=== PATIENT | male | born 1950 | race Hispanic/Latino ===

== ENCOUNTER → 2018-02-26 | Outpatient (CLI) | payer OTHER ==
[~2018-02-26] MED LIST: ASPI-1197 PO; BACL10TA PO; CARV3.1262 PO; CLOP75TA14 PO; FLUT16H NS; FURO40TA7 PO; LISI-617 PO; LISI10TA7 PO; NAPR375T6 PO; RIVA20TA PO; VITA150T PO
== END | disposition home or self-care (01) ==
LOC: RAH 11:21
PROVIDERS: ATTEND Internal Medicine
DX: M54.5 Low back pain (principal); M54.6 Pain in thoracic spine
CPT/HCPCS: 72040; 72072

== ENCOUNTER 2018-03-08 10:23 | Observation (INO) | payer OTHER ==
[~2018-03-08] VITALS: Ht 167.6 cm; Wt 72.9 kg
[2018-03-08] MEDS ORDERED: SODIUM CHLORIDE 0.9% 500ML 500 ML IV ONE ×2 (10:46→11:10)
[2018-03-08 10:52] LABS: BASOPHILS % (AUTO) 0.7 % (0.0-5.0); EOSINOPHILS % (AUTO) 1.3 % (0.0-8.0); HEMATOCRIT 34.6 % (42-54); LYMPHOCYTES % (AUTO) 10.9 % (21.0-51.0); MEAN CORPUSCULAR HEMOGLOBIN 35.4 pg (27.0-33.0); MEAN CORPUSCULAR HGB CONC 35.5 g/dL (32.0-36.0); MEAN CORPUSCULAR VOLUME 99.7 fL (79-99); MONOCYTES % (AUTO) 6.9 % (3.0-13.0); NEUTROPHILS % (AUTO) 80.2 % (40.0-77.0); NUCLEATED RED BLOOD CELLS 0.1 % (0.0-0.19); PLATELET COUNT (AUTO) 347 K/uL (130-400); RED BLOOD CELL COUNT(AUTO) 3.47 MIL/uL (4.50-6.20); RED CELL DISTRIBUTION WIDTH 12.9 % (11.0-15.5); WHITE BLOOD COUNT (AUTO) 7.7 K/uL (4.8-10.8)
[2018-03-08] MEDS ORDERED: METOPROLOL TARTRATE 1 MG/ML 5ML VIAL IV ONE ×2 (11:00→11:10)
[2018-03-08] MEDS ORDERED: ASPIRIN 325 MG TABLET ONE (11:07)
[2018-03-08 11:10] LABS: CREATININE 1.1 mg/dL (0.5-1.5)
[2018-03-08 11:23] LABS: ALBUMIN 2.8 g/dL (3.5-5.0); BILIRUBIN,TOTAL 0.7 mg/dL (0.2-1.0); CREATINE KINASE MB 1.4 ng/mL (0.5-3.6); TOTAL PROTEIN, SERUM 7.6 g/dL (6.0-8.3)
[2018-03-08 11:28] LABS: INR 0.97 (0.85-1.15); PARTIAL THROMBOPLASTIN TIME 27.9 SEC (26.3-35.5); PROTHROMBIN TIME 10.2 SEC (9.6-11.6)
[2018-03-08 11:47] LABS: B-TYPE NATRIURETIC PEPTIDE 817 pg/mL (0-100)
[2018-03-08] MEDS ORDERED: FUROSEMIDE 10 MG/ML 4ML VIAL ONE (12:01)
[2018-03-08] MEDS ORDERED: IOPAMIDOL-370 100 ML VIAL IV ONE (13:10)
[2018-03-08 15:20] VITALS: BP 101/71
[2018-03-08] MEDS ORDERED: FLUT16H NS (15:47)
[2018-03-08] MEDS ORDERED: BACL10TA PO (15:47)
[2018-03-08] MEDS ORDERED: NAPR375T6 PO (15:47)
[2018-03-08] MEDS ORDERED: LISI10TA7 PO (15:47)
[2018-03-08] MEDS ORDERED: VITA150T PO (15:47)
[2018-03-08 16:15] VITALS: BP 121/67
[2018-03-08] MEDS ORDERED: LACTULOSE 20 GM/30 ML UDCUP PO PRN (16:30)
[2018-03-08] MEDS ORDERED: ACETAMINOPHEN 325 MG TAB PO PRN (16:30)
[2018-03-08] MEDS ORDERED: FUROSEMIDE 10 MG/ML 2ML VIAL IV SCH (16:30)
[2018-03-08] MEDS ORDERED: ONDANSETRON HCL MDV 20ML 2 MG/ML VIAL IVP PRN (16:30)
[2018-03-08 19:22] VITALS: BP 92/63
[2018-03-08] MEDS: METOPROLOL TARTRATE 25 MG TAB PO SCH (21:32)
[2018-03-08 23:20] VITALS: BP 100/77
[2018-03-09] MEDS ORDERED: POTASSIUM CHLORIDE 20 MEQ ERTAB PO PRN (00:15)
[2018-03-09] MEDS ORDERED: POTASSIUM CHLORIDE 20MEQ/100ML 100 ML IV PRN (00:15)
[2018-03-09] MEDS ORDERED: HYDRALAZINE HCL 20 MG/ML VIAL IV PRN (00:15)
[2018-03-09] MEDS ORDERED: POTASSIUM CHLORIDE 10% ELIXIR 20 MEQ/15 ML UDCUP PO PRN (00:15)
[2018-03-09] MEDS ORDERED: LIDOCAINE HCL-MPF 1% 2ML VIAL IVP PRN (00:15)
[2018-03-09 01:02] LABS: CREATINE KINASE MB 2.7 ng/mL (0.5-3.6); TROPONIN I 0.34 ng/mL (0.00-0.06)
[2018-03-09] MEDS: IPRATROPIUM 0.5 MG/2.5 ML INH IH SCH ×6 (01:24→21:25)
[2018-03-09 04:21] VITALS: BP 117/74
[2018-03-09 06:09] LABS: BASOPHILS % (AUTO) 0.5 % (0.0-5.0); EOSINOPHILS % (AUTO) 0.4 % (0.0-8.0); LYMPHOCYTES % (AUTO) 7.6 % (21.0-51.0); MEAN CORPUSCULAR HEMOGLOBIN 34.3 pg (27.0-33.0); MEAN CORPUSCULAR VOLUME 98.1 fL (79-99); MONOCYTES % (AUTO) 7.2 % (3.0-13.0); NEUTROPHILS % (AUTO) 84.3 % (40.0-77.0); PLATELET COUNT (AUTO) 339 K/uL (130-400); RED BLOOD CELL COUNT(AUTO) 3.46 MIL/uL (4.50-6.20); RED CELL DISTRIBUTION WIDTH 12.9 % (11.0-15.5); WHITE BLOOD COUNT (AUTO) 10.2 K/uL (4.8-10.8)
[2018-03-09 06:29] LABS: B-TYPE NATRIURETIC PEPTIDE 1360 pg/mL (0-100)
[2018-03-09 06:46] LABS: CREATINE KINASE MB 16.1 ng/mL (0.5-3.6); MAGNESIUM 1.9 mg/dL (1.80-2.40); POTASSIUM 3.9 mmol/L (3.5-5.1); THYROID STIMULATING HORMONE 1.78 uIU/mL (0.36-3.74); TROPONIN I 0.33 ng/mL (0.00-0.06)
[2018-03-09 07:00] VITALS: BP 107/75
[2018-03-09] MEDS: ASPIRIN 325MG EC TAB 325 MG TABLET.DR PO SCH (08:20)
[2018-03-09] MEDS: FAMOTIDINE 20MG TAB 20 MG TAB PO SCH ×2 (08:20→21:04)
[2018-03-09] MEDS: METOPROLOL TARTRATE 25 MG TAB PO SCH (08:20)
[2018-03-09] MEDS ORDERED: ENOXAPARIN SODIUM 40 MG/0.4 ML SYRINGE SQ SCH (09:00)
[2018-03-09] MEDS ORDERED: DOXYCYCLINE 100MG+NS 250ML 250 ML IV SCH (09:15)
[2018-03-09] MEDS ORDERED: CLOPIDOGREL BISULFATE 300 MG TAB PO SCH (09:45)
[2018-03-09] MEDS: ENOXAPARIN SODIUM 80 MG/0.8 ML SQ SCH ×2 (10:00→21:03)
[2018-03-09 11:00] VITALS: BP 100/73
[2018-03-09 16:00] VITALS: BP 97/66
[2018-03-09] MEDS: FUROSEMIDE 10 MG/ML 2ML VIAL IV SCH (16:21)
[2018-03-09] MEDS ORDERED: METOPROLOL TARTRATE 1 MG/ML 5ML VIAL IV PRN (19:30)
[2018-03-09 19:31] VITALS: BP 110/70
[2018-03-09] MEDS: CARVEDILOL 3.125 MG TABLET PO SCH (21:04)
[2018-03-09 23:18] VITALS: BP 85/59
[2018-03-10] MEDS: IPRATROPIUM 0.5 MG/2.5 ML INH IH SCH ×3 (01:59→10:21)
[2018-03-10 03:42] VITALS: BP 95/67
[2018-03-10 05:07] LABS: BASOPHILS % (AUTO) 0.9 % (0.0-5.0); EOSINOPHILS % (AUTO) 2.1 % (0.0-8.0); HEMATOCRIT 29.3 % (42-54); LYMPHOCYTES % (AUTO) 11.5 % (21.0-51.0); MEAN CORPUSCULAR HEMOGLOBIN 37.6 pg (27.0-33.0); MEAN CORPUSCULAR HGB CONC 38.4 g/dL (32.0-36.0); MONOCYTES % (AUTO) 9.7 % (3.0-13.0); NEUTROPHILS % (AUTO) 75.8 % (40.0-77.0); PLATELET COUNT (AUTO) 304 K/uL (130-400); RED BLOOD CELL COUNT(AUTO) 2.99 MIL/uL (4.50-6.20); WHITE BLOOD COUNT (AUTO) 7.8 K/uL (4.8-10.8)
[2018-03-10 05:16] LABS: POTASSIUM 3.6 mmol/L (3.5-5.1)
[2018-03-10] MEDS: FUROSEMIDE 10 MG/ML 2ML VIAL IV SCH (05:22)
[2018-03-10 05:48] LABS: B-TYPE NATRIURETIC PEPTIDE 997 pg/mL (0-100)
[2018-03-10 07:00] VITALS: BP 85/57
[2018-03-10] MEDS ORDERED: RIVA20TA PO (08:35)
[2018-03-10] MEDS ORDERED: FURO40TA7 PO (08:35)
[2018-03-10] MEDS ORDERED: CARV3.1262 PO (08:35)
[2018-03-10] MEDS ORDERED: CLOP75TA14 PO (08:35)
[2018-03-10] MEDS ORDERED: LISI-617 PO (08:35)
[2018-03-10] MEDS ORDERED: ASPI-1197 PO (08:35)
[2018-03-10] MEDS ORDERED: FUROSEMIDE 40 MG TABLET PO SCH (09:00)
[2018-03-10] MEDS ORDERED: LISINOPRIL 5 MG TABLET PO SCH (09:00)
[2018-03-10] MEDS ORDERED: RIVAROXABAN 20 MG TABLET PO SCH (09:00)
[2018-03-10] MEDS ORDERED: CLOPIDOGREL BISULFATE 75 MG TAB PO SCH (09:00)
[2018-03-10 09:01] VITALS: BP 94/66
[2018-03-10] MEDS: FAMOTIDINE 20MG TAB 20 MG TAB PO SCH (09:04)
[2018-03-10] MEDS: ASPIRIN 325MG EC TAB 325 MG TABLET.DR PO SCH (09:04)
[2018-03-10] MEDS: CARVEDILOL 3.125 MG TABLET PO SCH (09:05)
[2018-03-10 11:00] VITALS: BP 86/56
== END 2018-03-10 12:45 | disposition home or self-care (01) ==
LOC: EDH 10:23 → EDHIP 11:59 → 2BH 15:07 → 2DH 03-09 05:07
PROVIDERS: ADMIT Family Medicine; ATTEND Family Medicine
DX: I48.91 Unspecified atrial fibrillation (principal); I50.23 Acute on chronic systolic (congestive) heart failure; J90 Pleural effusion, not elsewhere classified; I11.0 Hypertensive heart disease with heart failure; M54.12 Radiculopathy, cervical region; Z85.46 Personal history of malignant neoplasm of prostate; Z87.891 Personal history of nicotine dependence; Z82.49 Family history of ischemic heart disease and other diseases of the circulatory system
CPT/HCPCS: 36415 ×3; 71045 ×2; 71275; 80048 ×2; 80053; 80061; 80339; 82550 ×3; 82553 ×3; 83735; 83874 ×2; 83880 ×3; 84443; 84484 ×3; 85025 ×3; 85378; 85610; 85730; 93005 ×4; 93306; 94640 ×9; 94664; 96372; 96374; 96376 ×2; 99291; A4510; A4600; G0378 ×49; J1650 ×2; J1940 ×4; J3490 ×3; J7040 ×2; Q9967

== ENCOUNTER → 2018-04-16 | Outpatient (CLI) | payer OTHER ==
[~2018-04-16] VITALS: Ht 167.6 cm; Wt 70.3 kg
[~2018-04-16] MED LIST changes: -LISI10TA7 PO; -NAPR375T6 PO; +REGADENOSON 0.4 MG/5 ML PF SYG IVP SCH
== END | disposition home or self-care (01) ==
LOC: SHCH 08:51
PROVIDERS: ATTEND Internal Medicine Cardiovascular Disease
DX: I25.10 Atherosclerotic heart disease of native coronary artery without angina pectoris (principal)
CPT/HCPCS: 78452; 93017; 96374; A9500 ×2; J2785

== ENCOUNTER → 2021-02-08 | Outpatient (CLI) | payer OTHER ==
[~2021-02-08] MED LIST changes: -LISI-617 PO; +LISI-809 PO; -REGADENOSON 0.4 MG/5 ML PF SYG IVP SCH
== END | disposition home or self-care (01) ==
LOC: RAH 12:58
PROVIDERS: ATTEND Internal Medicine
DX: M19.012 Primary osteoarthritis, left shoulder (principal)
CPT/HCPCS: 73030; 73060

== ENCOUNTER → 2021-05-06 | Outpatient (CLI) | payer OTHER | END | disposition home or self-care (01) | LOC: SHCH 14:11 | PROVIDERS: ATTEND Internal Medicine Cardiovascular Disease | DX: I87.2 Venous insufficiency (chronic) (peripheral) (principal) | CPT/HCPCS: 93970 ==

== ENCOUNTER → 2024-03-27 | Outpatient (CLI) | payer OTHER ==
[~2024-03-27] MED LIST changes: +CLOP-31 PO; -CLOP75TA14 PO; -LISI-809 PO; +LISI5TAB21 PO
== END | disposition home or self-care (01) ==
LOC: SHCH 14:02
PROVIDERS: ATTEND Internal Medicine Cardiovascular Disease
DX: I34.0 Nonrheumatic mitral (valve) insufficiency (principal); I11.9 Hypertensive heart disease without heart failure; E78.5 Hyperlipidemia, unspecified; I25.5 Ischemic cardiomyopathy
CPT/HCPCS: 93306